=== PATIENT | female | born 1935 | race Two or more races ===

== ENCOUNTER 2021-06-12 05:45 | Day surgery (SDC) | payer OTHER ==
[~2021-06-12 05:45] MED LIST: B12 ACTIVE1000 MCG PO; CLONAZEPAM2 MG PO; CRESTOR5 MG PO; VASOTEC10 MG PO
== END 2021-06-12 10:35 | disposition home or self-care (01) ==
LOC: CIR.AMB 05:45
PROVIDERS: ATTEND Surgery Surgery of the Hand
DX: M65.842 Other synovitis and tenosynovitis, left hand (principal); Z20.822 Contact with and (suspected) exposure to COVID-19

== ENCOUNTER 2022-04-07 15:43 | Emergency (ER) | payer OTHER ==
[~2022-04-07] VITALS: Ht 154.9 cm; Wt 54.4 kg
[2022-04-07] MEDS ORDERED: ARICEPT5 MG (16:28)
== END 2022-04-07 20:18 | disposition home or self-care (01) ==
LOC: ER 15:43
DX: H66.92 Otitis media, unspecified, left ear (principal); J02.9 Acute pharyngitis, unspecified; R53.81 Other malaise; I10 Essential (primary) hypertension; E03.9 Hypothyroidism, unspecified

== ENCOUNTER 2023-05-01 07:47 | Emergency (ER) | payer OTHER ==
[~2023-05-01] VITALS: Ht 154.9 cm; Wt 55.8 kg
[~2023-05-01 07:47] MED LIST changes: +ARICEPT5 MG
== END 2023-05-01 10:02 | disposition home or self-care (01) ==
LOC: ER 07:47
DX: R42 Dizziness and giddiness (principal); M54.59 Other low back pain

== ENCOUNTER 2023-08-27 08:20 | Emergency (ER) | payer OTHER ==
[~2023-08-27] VITALS: Ht 154.9 cm; Wt 56.7 kg
[2023-08-27 13:09] LABS: HEMATOCRIT 38.8 % (36.0-45.00); HEMOGLOBIN 12.4 g/dL (12.0-15.00); MEAN CELL VOLUME 89.1 fL (80.00-100.00); MEAN CORPUSCULAR HEMOGLOBIN 28.6 pg (27.00-32.0); MEAN CORPUSCULAR HGB CONC 32.1 g/dl (32.0-36.0); PLATELET COUNT 289 K/uL (150-450); RED BLOOD COUNT 4.35 M/uL (4.00-6.00); RED CELL DISTRIBUTION WIDTH 12.8 % (11.5-14.5)
[2023-08-27 13:40] LABS: ALBUMIN 3.8 gm/dL (3.4-5.0); BILIRUBIN TOTAL 0.48 mg/dL (0.3-1.2); CALCIUM 10.2 mg/dL (8.5-10.1); CREATININE SERUM 0.87 mg/dL (0.55-1.02); GFR 61.73; GLOBULINA 4.5 G/DL (2.4-3.5); POTASSIUM 3.98 mEq/L (3.5-5.1); TOTAL PROTEIN 8.3 gm/dL (6.4-8.2)
== END 2023-08-27 14:17 | disposition home or self-care (01) ==
LOC: ER 08:20
PROVIDERS: General Practice
DX: R42 Dizziness and giddiness (principal); M54.9 Dorsalgia, unspecified; Z88.8 Allergy status to other drugs, medicaments and biological substances; I10 Essential (primary) hypertension; I49.8 Other specified cardiac arrhythmias; M54.2 Cervicalgia; Z20.822 Contact with and (suspected) exposure to COVID-19
CPT/HCPCS: 36415; 70450; 93005; 96372; 99284; J2360; J3301